=== PATIENT | male | born 1925 | race Caucasian/White ===

== ENCOUNTER 2017-07-12 20:02 | Emergency (ER) | payer MEDICARE, OTHER ==
[~2017-07-12 20:02] MED LIST: AMLODIPINE BESYL5 MG PO; BENICAR20 MG PO; CENTRUM SILVER1 EAC3 PO; ESTER-C 500 MG1 EACH PO; FISH OIL 1,0001 EAC3 PO; FUROSEMIDE40 MG PO; LANTUS100 UNITS/ SUB-Q; LEVOFLOXACIN250 MG PO; LIDOCAINE30 G TOP; OCUVITE TABLET1 EAC1 PO; POTASSIUM CHLO10 ME2 PO; WARFARIN SODIUM4 MG PO; WARFARIN SODIUM5 MG PO
== END 2017-07-12 20:10 | disposition left against medical advice (07) ==
LOC: ED 20:02
DX: Z53.21 Procedure and treatment not carried out due to patient leaving prior to being seen by health care provider (principal)

== ENCOUNTER 2017-08-20 14:18 | Emergency (ER) | payer MEDICARE, OTHER ==
[~2017-08-20] VITALS: Ht 177.8 cm; Wt 104.3 kg
[2017-08-20] MEDS ORDERED: NORCO 5-325 TA1 EACH PO (16:04)
== END 2017-08-20 16:35 | disposition home or self-care (01) ==
LOC: ED 14:18
DX: S00.03XA Contusion of scalp, initial encounter (principal); R07.81 Pleurodynia; I10 Essential (primary) hypertension; E11.9 Type 2 diabetes mellitus without complications; Z85.46 Personal history of malignant neoplasm of prostate; Z79.4 Long term (current) use of insulin; Z79.01 Long term (current) use of anticoagulants; W01.198A Fall on same level from slipping, tripping and stumbling with subsequent striking against other object, initial encounter
CPT/HCPCS: 70450; 71111; 99284

== ENCOUNTER 2017-08-25 10:12 | Inpatient (IN) | payer MEDICARE, OTHER ==
[~2017-08-25] VITALS: Ht 177.8 cm; Wt 104.5 kg
[~2017-08-25 10:12] MED LIST changes: +NORCO 5-325 TA1 EACH PO
[2017-08-25] MEDS ORDERED: DEMADEX20 MG PO (12:20)
--- NOTE | 2017-08-25 14:00 | NUR ---
PT TRANSFERED FROM ED. PT AWAKE AND ORIENTED. PT RESPONDING APPROPRIATLY TO QUESTIONS. SKIN ASSESSMENT DONE. ALEVYN APPLIED TO BACK AND COCCYX. ARM BANDAGES CHANGED IN ED. PT POSITIONED ON RIGHT SIDE. BLOOD SUGAR TAKEN = 58. ORANGE JUICE CHEESE AND CRAKERS PROVIDED. PT TOLERATES PO INTAKE WELL. ASSESSMENT DONE. MEDICAITONS GIVEN ORDERED (SEE MAR). PT URINATES WITH HELP IN URINAL. FAMILY AT BEDSIDE BREIFLY AND THEN LEFT FOR HOME. PT DEMONSTARTES USE OF CALL LIGHT. BED ALARM ON. BED RAILS UP.
--- NOTE | 2017-08-25 14:30 | NUR ---
PT WAS JUST ADMITTED, STAFF GETTING PT SETTLED IN [place]- AND DAUGHTER WAITING IN [place]. INTRO MYSELF, THEY BEGAN TO SHARE SOME TIMES WITH PREVIOUS CHAPLAINS, AND THEN BEGAN TO SHARE SOME ANXIETY ABOUT PT AND HIS CONDITION. WAS HOPING PT WOULD GO TO [facility] FOR SOME REHAB, AND THEN MAYBE THEY BOTH COULD LIVE AT ASSISTED LIVING TOGETHER. DISCUSSED THIS, AND THEY SEEMED AT EASE. PT READY FOR THEM, WILL CONTINUE TO FOLLOW.
--- NOTE | 2017-08-25 14:44 | NUR ---
BLOOD SUGAR RETAKEN. NOW 54, RETAKEN IN RIGHT HAND = 52. ADDITIONAL JUICE PROVIDED. PT STATES "I'M SO FULL." PLAN TO RETAKE SURGAR IN ANOTHER 15 MINUTES. PT ASYMTOMATIC. PT DENIES LIGHTHEADDENESS AND DIZZINESS. THIS RN AT BEDSIDE.
[2017-08-25] MEDS ORDERED: COUMADIN1 MG PO (15:04)
[2017-08-25] MEDS ORDERED: ESTER-C 500 MG1 EACH PO (15:05)
--- NOTE | 2017-08-25 15:14 | NUR ---
PT ASSISTED WITH BED HADLEY. NO BM PRESENT. PT REPORTS "FEELING BLOATED AND MISERABLE." CBG RETAKEN = 80. PLAN TO RETAKE AGAIN IN 15 MINUTES. SON AT BEDSIDE. BED RAILS UP. CALL LIGHT WITHIN REACH.
--- NOTE | 2017-08-25 16:06 | NUR ---
AFTERNOON ASSESSMENT DUE. PT ON RIGHT SIDE WATCHING TV. PT STATES NO REQUESTS OR COMPALINTS AND SAYS "THIS IS THE BEST HOSPITAL STAFF." ASSESSMENT DONE. MEDICATION GIVEN (SEE MAR). PT TURNED TO LEFT SIDE. CHAP STICK APPLIED. PT LEGS ARE ACTIVELY WEEPING AT THIS TIME. BED RAILS UP. CALL LIGHT WITHIN REACH.
--- NOTE | 2017-08-25 16:58 | NUR ---
PATIENT BLOOD GLUCOSE CHECKED FOR 87. PATIENT SITTING UP IN BED TO EAT DINNER OF SALMON AND MASHED POTATOES.
--- NOTE | 2017-08-25 18:13 | NUR ---
PT HERE FOR LIVER MASS AND WEAKNESS. FULL ASSIST. REGULAR DIET. SL IN LAC. BLOOD GLUCOSE LOW TODAY (52) HYPOGLYCEMIA PROTOCOL IN PLACE. ENCOAURGE INTAKE. MULTIPLE SKIN ISSUES. BANDAGES ON BUTTOX, UPPER BACK, LEFT UPPER ARM AND RIGHT FORARM. NYSTATIN AT BEDSIDE FOR PERINEAL AREA. RECENT FALLS AT HOME. GENERALIZED WEEKNESS. 4+ PITTING EDEMA IN LEGS, 3+ IN ABDOMEN, AND 2+ IN CHEST. LEGS WEEPING, MONITOR SKIN CLOSELY. ORIENTED TODAY. USES CALL LIGHT APPROPRIATLY.
--- NOTE | 2017-08-25 18:51 | EKG ---
[facility] [address] [place] [address] Signed Atrial fibrillation Low voltage QRS Cannot rule out Anteroseptal infarct (cited on or before 26-FEB-2016) Abnormal ECG When compared with ECG of 26-FEB-2016 13:33, Questionable change in initial forces of Anterior leads Confirmed by KJ SHINE MD ([id number]) on 08/25/2017 6:50:59 PM Electronically Signed By: KJ SHINE MD 08/25/17 1851 PATIENT NAME: VISHNU KAUFMAN Electrocardiogram DATE OF : [birth year] PHYSICIAN: KJ SHINE MD REPORT #: [id number] REPORT IS CONFIDENTIAL AND NOT TO BE RELEASED WITHOUT AUTHORIZATION
--- NOTE | 2017-08-25 19:36 | NUR ---
RECIEVED REPORT FROM DAY SHIFT NURSE. PATIENT RESTING IN BED. DENIES NEEDS AT THIS TIME. CALL LIGHT IN REACH.
--- NOTE | 2017-08-25 20:33 | NUR ---
REPOSITIONED PATIENT IN BED ON L SIDE. CHECKED FOR EPISODE OF INCONT., FOUND DRY. ASSISTED PATIENT WITH URINAL BUT HE WAS UNABLE TO VOID AT THIS TIME. PERIAREA IS REDDENED-APPLIED NYSTATIN POWDER. PLACED PILLOW CASES IN FOLDS TO KEEP AREA DRY. LUNGS ARE DIMINISHED. +3-+4 PITTING BLE EDEMA, AREAS ARE WEEPING WITH BLISTERS FORMING. CHUCKS UNDER LEGS. HEEL PROTECTORS IN PLACE. SPOTS OF REDNESS TO SHINS. FAINT PEDAL PULSES PALPATED. PATIENT DENIES PAIN. HYDRATION OFFERED. PATIENT DENIES NEEDS. CALL LIGHT IN REACH.
--- NOTE | 2017-08-25 21:12 | NUR ---
ASSISTED PT WITH URINAL. VOIDED WELL. PT HAS NO FURTHER NEEDS AT THIS TIME. CALL LIGHT IN REACH. PT ALERT AND ORIENTED, PLEASENT. PT STATES "THIS HOSPITAL HAS THE BEST NURSES, YOU ARE ALL SO GOOD." PT REPORTS GREAT CARE SINCE HE'S BEEN IN THE HOSPITAL.
--- NOTE | 2017-08-25 23:12 | NUR ---
repositioned patient on l side. hydration offered. checked for episode of incont., found dry. patient denies needs. call light in reach.
--- NOTE | 2017-08-26 01:45 | NUR ---
repositioned patient on r side. changed brief. cleaned periarea. patient used urinal to void. lungs are diminished. edema has not gone down since last night. patient denies pain. hydration offered. call light in reach.
--- NOTE | 2017-08-26 02:00 | NUR ---
CHANGED DRESSING TO UPPER ARMS. ADAPTIC TO MANJINDER-2 LARGE SKIN TEARS NOTED. PLACED ABD PAD AND WRAPPED WITH KERLIX. THERE WAS RED/BROWN DRAINAGE ON OLD KERLIX. REMOVED BANDAID TO L ELBOW. PLACED TELFA AND WRAPPED WITH KERLIX. FOAM DRESSINGS INTACT ON BUTTOCKS. FOAM DRESSING TO BACK INTACT.
--- NOTE | 2017-08-26 03:49 | NUR ---
PATIENT SLEEPING. CALL LIGHT IN REACH.
--- NOTE | 2017-08-26 04:30 | NUR ---
repositioned patient on l side. assisted patient with urinal. hydration offered. patient denies further needs.
--- NOTE | 2017-08-26 06:39 | NUR ---
REPOSITIONED PATIENT ON L SIDE. CHECKED FOR EPISODE OF INCONT., FOUND DRY. DENIES NEEDS AT THIS TIME.
--- NOTE | 2017-08-26 09:00 | NUR ---
MORNING ASSESSMENT AND MEDICATIONS DUE. PT IN BED. AWAKE AND ORIENTED. PT DENIES PAIN AND NAUSEA. ASSESSMENT DONE. MEDICATIONS GIVEN ORDERED (SEE MAR). PT EATS BREAKFAST IN FRONT OF THIS RN. PERITONEAL AREA ASSESSED AND CARE PROVIDED. PT REPOSITIONED, NOW ON LEFT SIDE. HOB ELEVATED. BED RAILS UP. CALL LIGHT WITHIN REACH. STUDENT RN PLANNING FOR ADL CARE TODAY.
--- NOTE | 2017-08-26 10:42 | NUR ---
PUMP ALARMING, "DISTAL OCCLUSION." PIV ASSESSED, WNL BUT NEEDS TO BE DC'D PER PROTOCOL: FIELD START. PIV STARTED IN RIGHT FA PER PROTOCOL. INFUSION NOW RUNNING THROUGH RFA (SEE MAR). ADL CARE DONE BY STUDENT RN. PT TURNED NOW ON RIGHT SIDE. PT WATCHING TV AND NAPPING ON AND OFF. PT STATES NO REQUESTS OR COMPLAINTS AT THIS TIME. BED RAILS UP. CALL LIGHT, PHONE, AND BELONGINGS WITHIN REACH.
--- NOTE | 2017-08-26 11:07 | NUR ---
PT CALLED TO REPORT FINISHED ON BEDPAN. PT HAD SMALL AMOUNT OF BM. INCONTINENT OF URINE, DEPENDS CHANGED, BARRIER CREAM WIPES USED, DRESSINGS ON BUTTOCKS INTACT. PT TOLERATED WEL. PT REPOSITIONED TO LEFT SIDE.
--- NOTE | 2017-08-26 11:57 | NUR ---
THIS RN TO BEDSIDE FOR FOCUSED ASSESSMENT AND NOON CBG. CBG TAKEN BY STUDENT, 174, INSULIN GIVEN ORDERED. FOCUSED ASSESSMENT DONE. PT SITTING UP FOR LUNCH. IV INFUSION COMPLETE. PIV FLUSHED AND SALINE LOCKED. ALCOHOL CAP APPLIED. PT STATES NO ADDITIONAL REQUESTS OR COMPLAINTS AT THIS TIME. BED RAILS UP. CALL LIGHT WITHIN REACH.
--- NOTE | 2017-08-26 12:39 | NUR ---
THIS CHEMICAL RESEARCH WORKER AND STUDENT NURSE ASSISTED PATIENT OFF BED HADLEY AND PERICARE. PATIENT TURNED ONTO LEFTSIDE. LEGS ELEVATED. PATIENT SITTING STRAIGHT UP IN BED TO FINISH LUNCH. CALL BUTTON IN REACH. NO OTHER NEEDS AT THIS TIME. STUDENT NURSE STATES THAT PATIENT REFUSED FULL BED BATH THIS AM. STUDENT NURSE ASSISTED WITH ORAL CARE, SHAVE, AND SHAMPOO CAP.
--- NOTE | 2017-08-26 13:05 | NUR ---
INTO ASSESS PT AND DISCUSS CARE PLAN AT THIS TIME. PT HAS APPOINTMENT IN [facility]ER CLINIC TOMORROW WITH , WANTS PT TO BE TAKEN TO THIS APPOINTMENT.
--- NOTE | 2017-08-26 13:07 | NUR ---
PT TURNED TO RIGHT SIDE AT THIS TIME.
--- NOTE | 2017-08-26 13:44 | NUR ---
CASE CARLI REQUESTING TO TALK WITH WHEN SHE COMES IN. CALLED AND STATES SHE WILL BE IN "ARROUND SUPPER TIME." BLEACH BOILER PACKER INFORMED.
--- NOTE | 2017-08-26 13:54 | NUR ---
PT CALL LIGHT ON. PT REQUESTS TO USE URINAL. PT ASSISTED. UNABLE TO URINATE AT THIS TIME. PT STATES "i HAVE CANCER." PT ENCOUARGED TO EXPRESS FEELINGS AND TALKS WITH THIS RN. DEPENDS BACK IN PLACE. DRY AT THIS TIME. BEDRAILS UP. CALL LIGHT WITHIN REACH.
--- NOTE | 2017-08-26 14:02 | NUR ---
I/OS REVIEWED. 150ML OUT TODAY. INFORMED. REQUESTS CATHETER PLACEMENT. ORDER NOTED BY THIS RN.
--- NOTE | 2017-08-26 14:25 | NUR ---
PATIENT RESTING IN BED WATCHING TV. FRESH ICE WATER. NO OTHER NEEDS AT THIS TIME.
--- NOTE | 2017-08-26 16:49 | NUR ---
THIS TRANSCRIPTION AND RAGHAV DEVI ASSISTED PATIENT ONTO THE BEDPAN. THEN OFF OF THE BEDPAN. THERE WAS NO BM. PATIENTS IN ROOM. RN IN ROOM DOING CBG. CALL LIGHT WITHIN REACH. NO OTHER NEEDS AT THIS TIME.
--- NOTE | 2017-08-26 16:52 | NUR ---
AFTERNOON ASSESSMENT DONE. AT BEDSIDE. MONKEY KEEPER CALLED TO BEDSIDE. PT STATES HE IS FEELING BETTER WITH THE CALDERA CATHETER IN. ASSESSMENT DONE. CBG TAKEN = 157. MEDICAITON GIVEN (SEE MAR). PT VISITING WITH . NO REQUESTS OR COMPLAINTS AT THIS TIME. PT VERBALIZES UNDERSTANDING OF PLAN OF CARE. PT EXHIBITS POSSIBLE DEPRESSION WHEN COMMENTS ON FIXING UP THE HOUSE AND PT STATES "I PROBABLY WILL NEVER GET THERE." BED RAILS UP. CALL LIGHT WITHIN REACH.
--- NOTE | 2017-08-26 17:48 | NUR ---
PT HERE FOR LIVER MASS AND WEAKNESS. FULL ASSIST, Q 2HOUR TURNS. 2 GRAM SODIUM DIET. CBG'S WITHIN RANGE TODAY. 1 UNIT INSULIN GIVEN AT MEALS. PLAN FOR PT TO GO TO DR. CHAPPELL'S OFFICE TOMORROW FOR 10AM APPOINTMENT IF HE CAN BE TRANSFERED TO A WHEELCHAIR. LOW URINE OUTPUT TODAY. CALDERA CATHETER PLACED PER MD ORDER. NEW SKIN TEAR ON RIGHT WRIST. TEFLA AND COBAN APPLIED. NEW PIV IN RIGHT FORVERNA NORMAN.
--- NOTE | 2017-08-26 18:14 | NUR ---
PT CALL LIGHT ON. PT REQUESTS TO PAY FOR 'S MEAL. DIETARY CALLED AND STATES THEY WILL SEND SOMEONE UP. PT FINISHED WITH DINNER. VITALS TAKEN. I/O'S RECORDED. PT SITTING UP IN BED VISITING WITH . BED RAILS UP. CALL LIGHT WITHIN REACH.
--- NOTE | 2017-08-26 18:20 | NUR ---
PT TURNED WITH 3 RN ASSIST. PT NOW ON RIGHT SIDE. BED RAILS UP. CALL LIGHT WITHIN REACH. PT TOELRATED WELL. FEET ELEVATED.
--- NOTE | 2017-08-26 20:38 | NUR ---
PT HAD BM ON BEDPAN, LARGE SOFT BM. CLEANED PT UP AND RE-POSITIONED HIM IN BED. REPLACED ALLEVYN DRESSING ON PT'S COCCYX AREA DUE TO THEM BEING SOILED. COCCYX IS RED, BUT BLANCHABLE, ONE SPOT WITH BROKEN SKIN. PT TOLERATED WELL. CALDERA DRAINING FREELY. PT ALERT AND ORIENTED X4. PT PLEASENT, VERBALIZES HIS APPRECIATION FOR HIS CARE HERE, STATES "YOU GIRLS ARE ALL SO GOOD, HARJEET JUST FELL IN LOVE WITH ALL OF YOU." PT DENIES FURTHER NEEDS. CALL LIGHT IN REACH.
--- NOTE | 2017-08-26 23:07 | NUR ---
PT TEMP 102.[address] SHINE, OKAY TO ORDER AND GIVE TYLENOL PO. PT COMPLAINS OF FEELING COLD AND HAS RIGORS. WILL CONTINUE TO MONITOR.
--- NOTE | 2017-08-27 00:01 | NUR ---
PT AWAKE IN BED, REPORTS NOT BEING ABLE TO FALL ASLEEP, REFUSED EAR PLUGS AND EYE MASK, STATES "ILL BE OKAY, I JUST HAVE MY NIGHTS AND DAYS MIXED UP I GUESS." LIGHT AND TV OFF IN ROOM. RE-POSITIONED PT IN BED. NO FURTHER NEEDS.
--- NOTE | 2017-08-27 03:22 | NUR ---
PT APPEARS ASLEEP, RR WNL AND UNLABORED. LIGHTS AND TV OFF IN ROOM.
--- NOTE | 2017-08-27 05:03 | NUR ---
PT HAD UNEVENTFUL NIGHT. HAD TROUBLE FALLING ASLEEP EARLY IN SHIFT, BUT ONCE HE DID, HE SLEPT MAJORITY OF SHIFT. LARGE SOFT BM. CALDERA DRAINING FREELY. NEW DRESSING TO COCCYX. PT TURNED APPROX Q2H THROUGHOUT SHIFT. PT ALERT AND ORIENTED X4. PLEASENT AND COOPERATIVE.
--- NOTE | 2017-08-27 07:30 | NUR ---
RECEIVED BEDSIDE REPORT FROM MAHAMED. PATIENT RESTING IN BED AWAKE. DENIES PAIN AND NAUSEA. REPORTED FEELING FULL. PATIENT IS A&O. CALDERA IN PLACE. NO APPARENT DISTRESS. CALL LIGHT IN REACH.
--- NOTE | 2017-08-27 08:00 | NUR ---
BLOOD GLUCOSE CHECKED BEFORE BREAKFAST. GLUCOSE WAS 132. PT'S INSULIN NOT NEEDED R/T BLOOD GLUCOSE WITHIN LIMITS. PT GIVEN DENTURES TO ASSIST WITH EATING. CALL LIGHT WITHIN REACH. PT HAS NO FURTHER REQUESTS.
--- NOTE | 2017-08-27 09:00 | NUR ---
IN TO GIVE PT MORNING MEDS. OT IN ROOM PT'S BP 170/53, HR 69 BEFORE MEDS ADMINISTERED. OT GOT PATIENT UP AT BEDSIDE, PT ABLE TO TAKE A FEW SMALL SIDE STEPS. PT COMPLAINS OF SOB AND WEAKNESS WITH EXERTION. PT'S O2 SAT DOWN TO 85 WITH ACTIVITY. O2 SAT IMMEDIATELY UP TO 91-93 WHEN RETURNING TO BED. PT'S HAIR COMBED AND FACE WASHED PER STUDENT NURSE. DENTURES PLACED IN DENTURE CONTAINER. PT HAS NO FURTHER REQUESTS. CALL LIGHT IN REACH.
--- NOTE | 2017-08-27 09:30 | NUR ---
PT'S FAMILY IN ROOM. PT NOTIFIED HE WILL NOT BE ABLE TO SEE ONCOLOGIST UNTIL THIS UPCOMING FRIDAY DUE TO INPATIENT STATUS. PT'S ASKING ABOUT WHETHER HE WILL QUALIFY TO GO TO [place]. PT & FAMILY INFORMED THAT THIS WOULD DEPEND ON HOW HE DOES DURING HOSPITAL STAY. PT DID NOT HAVE ANY FURTHER REQUESTS AT THIS TIME. CALL LIGHT IN REACH.
--- NOTE | 2017-08-27 09:55 | NUR ---
PATIENT OFF THE FLOOR WITH OR NURSE FADUMO FOR EGD.
--- NOTE | 2017-08-27 11:04 | NUR ---
STUDENT NURSE STATES THAT HE GAVE PATIENT A BED BATH AND CALDERA CARE. PATIENT STATES THAT WHEN HIM AND THE RN SEE THE PATIENT TO APPLY NYSTATIN POWDER THAT HE WILL WASH HIS BACK WELL.
--- NOTE | 2017-08-27 11:22 | NUR ---
THIS SENIOR SUPPORT ANALYST ASSISTED PUTTING PATIENT ONTO THE BEDPAN WITH RAGHAV PEREZ. PATIENTS IN ROOM.
--- NOTE | 2017-08-27 11:35 | NUR ---
CARE CONFERENCE ATTENDEES: PATIENT AND HIS PAT STAFF: DR SHINE, MYSELF CASE MANAGEMENT, EDINSON WALDEN RN, LYNNE PRIMARY NURSE, [facility], NINA RIVERA. DR SHINE DISCUSSED WITH THE PT ABOUT THE 8 CENTIMETER MASS IN HIS LIVER, HAD PICTURES TO SHOW PT APPROX WHERE MASS WAS LOCATED AND HOW IT IS PRESSING ON THE SUPERIOR VENA CAVA AND THAT IS WHY THE SWELLING IN THE LEGS AND ABD, BECAUSE THE RETURN FLOW TO THE HEART IS HAMPERED BY THE MASS IN THE LIVER. PT STATED UNDERSTANDING AND DR SHINE WENT ON TO EXPLAIN ABOUT BIOPSY AND THE BENIFIT OF THIS AND THE PT COMMENTED THAT HE WOULD JUST LIKE TO HAVE COMFORT NOT CHEMOTHERAPY, BROUGHT UP QUALITY VS QUANTITY AND DR SHINE AGREED. SO PT AND AGREE THEY WOULD LIKE COMFORT MEASURES NOW. WE TALKED A LITTLE ABOUT THE PLACES AVAILABLE FOR THE PT TO LIVE IN DURING THE REST OF HIS LIFE. PT AND WOULD LIKE HIM TO GO TO [facility], BUT IF NOT [facility], THEY WOULD LIKE HIM TO STAY IN [place] FOR EASE OF HER TO BE WITH HIM. I TOLD THEM I WOULD CALL THESE PLACES AND SEE WHAT I COULD FIND OUT. AND LET THEM KNOW.
--- NOTE | 2017-08-27 11:55 | NUR ---
CALLED [facility] AND STAN STATED SHE IS NOT SURE IF THEY WILL TAKE HIM A COMFORT CARE BUT IF HE HAS A SKILLED NEED THEY WOULD TAKE HIM SHE IS PRETTY SURE. I ALSO CALLED AND LEFT A MESSAGE FOR ANTONY AT [facility] (PT AND FAMILY 2ND CHOICE) MESSAGE LEFT FOR HER TO CALL BACK. THEN I CALL [facility] IN [place] AND THEY SAID THEY WOULD TAKE HIM A COMFORT CARE. THEN I CALLED [facility] AND THEY SAID THEY WOULD BE OVER THIS AFTERNOON TO EVALUATE THE PT. I CALLED THE AND LEFT A MESSAGE FOR HER TO CALL. I SPOKE WITH THE PT ABOUT THEM COMING TO EVALUATE HIM. HE SAID THAT WAS FINE.
--- NOTE | 2017-08-27 12:51 | NUR ---
BLOOD GLUCOSE CHECKED BEFORE LUNCH, GLUCOSE WAS 140. PRESCRIBED INSULIN NOT INDICATED R/T GLUCOSE BELOW LIMIT. PT COMPLAINED OF ITCHING ON RIGHT ARM. AREA IS RED, SKIN IS DRY. TOPICAL LOTION AND BARRIER CREAM PLACED TO SOOTHE ITCHING. NO FURTHER REQUESTS AT THIS TIME. CALL LIGHT IN REACH.
--- NOTE | 2017-08-27 13:45 | NUR ---
LINEN CHANGE AND VISHNU CARE DONE ON PATIENT BY THIS COMMUNITY AFFAIRS MANAGER AND STUDENT NURSE. PATIENTS HANDS AND FACE WASHED AND LOTION APPLIED TO ARMS. AFTER LINENS CHANGED PATIENT FELT SHORT OF BREATH. STUDENT RN BROUGHT IN VITAL CART. PATIENT SATS WHERE 92%. THIS COMMUNITY AFFAIRS MANAGER WAITED TO REPOSITON PATIENT ONTO LEFT SIDE UNTIL PATIENT WAS FEELING MORE COMFORTABLE. PATIENTS LEGS ELEVATED BY PILLOW. PATIENT REFUSED ANY ORAL CARE AT THIS TIME. TALKED TO PATIENT ABOUT SHAVING LATER THIS AFTERNOON AFTER HE IS RESTED. CALL BUTTON IN REACH. NO OTHER NEEDS AT THIS TIME.
--- NOTE | 2017-08-27 13:46 | NUR ---
PATIENT RESTING IN BED. WAS REPOSITIONED BY STUDENT NURSE AND GLAZE CARRIER. PATIENT REPORT MILD SOB WITH MOVING. NO PAIN. CARE CONGFERENCE WAS DONE THIS AM.
--- NOTE | 2017-08-27 14:00 | NUR ---
PT COMPLAINED OF ITCHING ON HIS RECTUM SINCE HIS LAST MB. WITH ASSISTANCE FROM RAGHAV PT WAS WIPED CLEAN USING BARRIER WIPES. BARRIER CREAM PLACED ON RECTUM. BANDAGE NOTED ON PATIENTS RIGHT GLUTEUS. APPEARS DRY AND INTACT. SKIN ON/AROUND RECTUM APPEARS RED. PT DENIES PAIN WITH WIPING. BEDDING CHANGED AND 1400 VITALS COMPLETE. PILLOW CASE PLACED BETWEEN PATIENTS SCROTUM AND INNER LEGS TO REDUCE CONTACT. PT DENIES FURTHER REQUESTS. CALL LIGHT WITH PT.
--- NOTE | 2017-08-27 14:56 | NUR ---
SNF STAFF IN ROOM TALKING TO PATIENT
--- NOTE | 2017-08-27 15:05 | NUR ---
AUTUMN FROM [facility] WAS HERE AND SHE STATED THEY WOULD TAKE HIM ON HOSPICE. STILL AWAITING TO HERE FROM MIKAEL PHAM
--- NOTE | 2017-08-27 16:00 | NUR ---
PATIENT RESTING IN BED DENIES PAIN AT THIS TIME. UPDATE PATIENT ON PROCEDURE (PARACENTHESIS) THAT DR SHINE TALKED TO ABOUT. DR ARANA CONSULTING FOR PROCEDURE. FAMILY WAS ALSO NOTIFIED.
--- NOTE | 2017-08-27 17:50 | NUR ---
PATIENT RESTING IN BED TALKING ON PHONE TO HIS . PATIENT'S GRANDAUNABEEL KEATING HAD SOME CONCERNS DUE TO FAMILY NOT ALL ON SAME PAGE AND HER GRANDMOTHER HAS HARD TIME REMEMBERING. PATIENT SIGNED CONSENT TO RELEASE INFORMATION TO GRANDDAUGHTER. GRANDANDREW FEELS LIKE SHE HAS HAD HER QUESTIONS ANSWERED. JUST LEFT ROOM. FRESH ICE WATER GIVEN. PATIENT ATE SMALL CONTAINER OF APPLE SCUACE AND WOULD LIKE SOME CHOCOLATE PUDDING. NO OTHER NEEDS AT THIS TIME. CALL BUTTON IN REACH.
--- NOTE | 2017-08-27 18:39 | NUR ---
PATIENT HAD AN UNEVENTFUL DAY. CARE CONFERENCE DONE TODAY WITH PATIENT AND PATIENT'S FAMILY. PLAN FOR FOR PATIENT TO GO ON COMFORT CARE AND D/C TO [facility]. PATIENT IS S/L. ASCITES. EDEMA IN THE LOWER EXTREMITIES. SCAB AND REDNESS NO THE CLARY SHINS. REDNESS IN THE BUTTOCKS AREA WITH ALLEVYN. FOELY IN PLACE. LOW URINE OUTPUT MD AWARE. CONSULT WITH DR ARANA FOR PARACENTHESIS IN THE AM.
--- NOTE | 2017-08-27 19:30 | NUR ---
RECEIVED REPORT FROM RN. PATIENT RESTING COMFORTABLY IN BED. DENIES NEEDS AT THIS TIME. CALL LIGHT WITHIN REACH.
--- NOTE | 2017-08-27 21:22 | NUR ---
ROUNDED CHARGE. PATIENT IS RESTING IN BED. PATIENT DENIES ANY PAIN. NO NEEDS NOTED. CALL LIGHT IN REACH.
--- NOTE | 2017-08-27 21:55 | NUR ---
VITALS AND I&OS DONE AND CHARTED. BEDSIDE TABLE AND CALL LIGHT WITHIN REACH. PT NEEDS NOTHING MORE AT THIS TIME
--- NOTE | 2017-08-27 21:58 | NUR ---
INFORMED HIS RN JAMES OF LOW OUTPUT FROM HIS CALDERA.
--- NOTE | 2017-08-27 22:30 | NUR ---
PATIENT RESTING IN BED. DENIES NEEDS AT THIS TIME. ASSESSMENT DONE. TURNED PATIENT FOR COMFORT, VISHNU CARE DONE, NEW LINES GIVEN FOR STOOL INCONTINENCE. NEW DRESSING TO SORE ON RIGHT BUTTOCK APPLIED. CALL LIGHT WITHIN REACH.
--- NOTE | 2017-08-27 22:50 | NUR ---
UPDATED DR. SHINE REGARDING PATIENT'S LOW URINE OUTPUT. NO NEW ORDERS AT THIS TIME.
--- NOTE | 2017-08-28 01:22 | NUR ---
PATIENT REPOSITIONED FOR COMFORT. DENIES FURTHER NEEDS. CALL LIGHT WITHIN REACH.
--- NOTE | 2017-08-28 03:45 | NUR ---
PATIENT REPOSITIONED IN BED FOR COMFORT. DENIES NEEDS AT THIS TIME. CALL LIGHT WITHIN REACH.
--- NOTE | 2017-08-28 04:43 | NUR ---
PATIENT'S NIGHT WAS UNEVENTFUL. HE HAS BEEN RESTING COMFORTABLY IN BED THROUGHOUT SHIFT. VSS, NO COMPLAINTS OF PAIN. URINE OUTPUT HAS BEEN LOW, MD AWARE. PATIENT IS Q2H TURN DUE TO SORES ON BUTTOCKS AND REDDENED COCCXY. IV IS SALINE LOCKED. PATIENT USES BEDPAN FOR BM OR 2PA/FWW TO BEDSIDE COMODE. REMAINS ON 2L O2 VIA NC. NO ACUTE CHANGES.
--- NOTE | 2017-08-28 05:49 | NUR ---
UPDATED DR. SHINE REGARDING PATIENT'S LOW URINE OUTPUT. NO NEW ORDERS AT THIS TIME.
--- NOTE | 2017-08-28 06:17 | NUR ---
REPOSITIONED PATIENT FOR COMFORT. DENIES NEEDS AT THIS TIME. CALL LIGHT WITHIN REACH.
--- NOTE | 2017-08-28 07:37 | NUR ---
I WAS REQUESTED TO PARTICIPATE IN A CARE CONF FOR PT. DURING THIS TIME, DR SHINE EXPLAINED PT'S CONDITION IN VERY SIMPLE PLAIN TERMS. " WE SUSPECT YOU HAVE A TUMOR ON YOUR LIVER. THE ONLY WAS TO KNOW FOR SURE IS WITH NEEDLE BIOPOSY. THEN FOLLOWED UP BY CHEMO AND QUALITY OF LIFE WILL BE GREATLY DIMINISHED. IT WILL NOT CURE YOU, JUST GIVE YOU MORE TIME. THE QUESTION "QUALITY VS QUANTITY" WAS ADDRESSED. PT AND BOTH TOGETHER SAID THEY HAD DISCUSSED THIS, AND THEY HAVE CHOSEN QUALITY, NO BIOPSY OR CHEMO. SONS WERE NOT PRESENT FOR CONF. TRIED TO VISIT PT LATER, BUT LOTS OF COMPANY. WILL FOLLOW UP
--- NOTE | 2017-08-28 07:43 | NUR ---
BEDSIDE REPORT RECEIVED FROM JAMES. PATIENT RESTING IN BED, APPEARS TO BE SLEEPING AT TIME OF REPORT. NO APPARENT DISTRESS NOTED. PATIENT IS ON 1L OF 02. CALL LIGHT IN REACH.
--- NOTE | 2017-08-28 08:15 | NUR ---
2 PERSON ASSIST WITH LEANDER JOHANSEN-MOVE PT UP IN BED FOR BREAKFAST. RINSED DENTURES AND GAVE TO PT. CALL LIGHT IN REACH.
--- NOTE | 2017-08-28 08:30 | NUR ---
PT WAS REPOSITIONED HIGHER IN BED AND ALL PILLOWS WERE REMOVED, WILL BE DOING A PROCEDURE SHORTLY.
--- NOTE | 2017-08-28 09:05 | NUR ---
IN TO ROOM TO ASSESS PATIENT. RAGHAV CHACKO IN ROOM TO HELP REPOSITIONED PATIENT. MORNING ASSESSMENT DONE. LOWER LEGS EDEMA SHOWED SOME IMPROVEMENT. ASCITES, ABD DISTENDED AND TIGHT, TENDER WITH SLIGHT PALPATION. SCROTUM STILL RED BUT MUCH BETTER THAN YESTERDAY. DENIES PAIN AT THIS TIME, REPORTS MILD SOB WITH MOVEMENT. REDNESS NOTED ON CLARY LEGS. INCREASED APPETITE TODAY. IV SITE PATENT. MORNING MED ADMINISTERED. CALL LIGHT IN REACH.
--- NOTE | 2017-08-28 09:48 | NUR ---
PT IS RESTING IN BED SAFELY WITH CALL LIGHT IN REACH. PT DOES NOT NEED ANYTHING AT THE MOMENT
--- NOTE | 2017-08-28 10:30 | NUR ---
PT WAS REPOSITIONED ONTO HIS LEFT SIDE. PT DID NOT NEED ANYTHING ELSE AT THE MOMNET
--- NOTE | 2017-08-28 10:50 | NUR ---
PHYSICAL THERAPIST IN ROOM TO WORK WITH PATIENT. PATIENT WAS ABLE TO STAND AND WALKED 10FEET. PATIENT TOLERATED OK . O2 WAS INCREASED TO 2L VIA NC. SOB NOTED WITH ACTIVITY. RESTING IN BED AT THIS TIME. CALL LIGHT IN REACH.
--- NOTE | 2017-08-28 13:00 | NUR ---
PATIENT RESTING IN BED, REPORT SOB, 02 SAT 97 ON 2L. PATIENT WAS REPOSITIONED. DENIES ANY CHEST PAIN OR ANY DISCOMFORT.
--- NOTE | 2017-08-28 13:07 | NUR ---
PT WAS LAYING IN BED, WAVED ME IN. HE SHOOK MY HAND AND THANKED ME FOR STOPPING BY. PT STATED HE WAS NOT IN ANY PAIN, BUT GREAT DISCOMFORT FROM FLUID BUILDUP IN ABDO. HE STATED IT WAS TO BE DRAINED THIS AFTERNOON. I ASKED PT IF HE WAS STILL BELIEVING THAT COMFORT CARE VS TREATMENT WAS WHAT HE WANTED TO DO. HE SAID YES. PT WENT ON TO SAY THAT IF HE WAS YEARS YOUNGER HE MIGHT CON- HAND ZIPPER TRIMMER TREATMENT, BUT NOT NOW. CLEAR, ALERT AND ORIENTED IN HIS THOUGHT PROCESS AND AWARENESS. HE ASKED IF HE COULD BE BAPTIZED, HE THINKS HE WAS BUT COULDN'T REMEMBER. HE IS CLOSE WITH HIS NEIGHBOR WHO IS A [employer]. HE WOULD LIKE HIM IF POSSIBLE. [employer]RA[employer] IS OUT OF TOWN, I WILL CONTACT. PT'S GRANDD LIAM CALLED AND IS CONCERNED ABOUT THIS ISSUE. I ASSURED HER WE WILL TAKE CARE OF THIS ISSUE FOR HER GRANDFATHER. HE SAID HE IS READY TO GO, EXCEPT FOR THIS ONE ISSUE. I PRAYED WITH PT, WITH TEARS HE THANKED ME. WILL FOLLOW NEEDED
--- NOTE | 2017-08-28 14:29 | NUR ---
TELEPHONE CALL RECEIVED REGARDING WOUND CONSULT REGARDING RIGHT UPPER ARM WOUND. WOUND IS FOUND TO BE COVERED IN ABD AND SECURED WITH COBAN. ADAPTIC IS FIRST LAYER OF DRESSING AND IS FOUND TO BE STUCK TO THE WOUND. NORMAL SALINE USED TO MOISTEN THE ADAPTIC FOR REMOVAL. SOME BLEEDING IS NOTED WHEN ADAPTIC IS REMOVED. SMALL AREA OF DRIED, SCAB LOOKING SKIN NOTED TO BOTTOM PORTION OF LARGER WOUND. OTHERWISE WOUND BEDS APPEAR LIGHT PINK AND ARE MOIST. PROMOGRAN JUDY COLLAGEN APPLIED TO BOTH WOUNDS AND THEN COVERED WITH 3 X 3 AND 5 X 5 ALLEVYN DRESSINGS. PT TOLERATES THE DRESSING CHANGE WELL. CONFER W/DR SHINE REGARDING WOUNDS AND NEW ORDER IS RECEIVED.
--- NOTE | 2017-08-28 14:38 | NUR ---
Pt. resting in bed. Appears comfortable but has dyspnea. Pt. denied pain or needing anything. Call light within reach.
--- NOTE | 2017-08-28 14:56 | NUR ---
PATIENT RESTING IN BED AT THIS TIME, PATIENT APPEARS TO BE SLEEPING , RR EVEN/UNLABORED. STILL ON 2L VIA NC. NO APPARENT DISTRESS.
--- NOTE | 2017-08-28 15:06 | NUR ---
VISITED WITH [employer] FRIEND OF PT WHO GAVE ME PERMISSION TO TALK TO [employer] REGARDING HIS HEALTH. [facility] IS OUT OF TOWN, BUT WILL VISIT WITH PT FIRST THING SAT. MORNING. PT WAS ASLEEP, SHARED WTIH HIS RN ELENO-SHE WILL LET PT KNOW. WILL FOLLOW NEEDED
--- NOTE | 2017-08-28 15:15 | NUR ---
RECIEVED A CALL FROM [facility] AND THEY SOUNDED HOPEFUL THAT THEY MIGHT ACCEPT PT, BUT WILL COME UP BETWEEN 10 TO 0 TO EVALUATE HIM.
--- NOTE | 2017-08-28 15:30 | NUR ---
TALKED WITH [facility] ABOUT THE PT AGAIN, THEY STATED IF WE HAD A PLACE FOR HIM TO GO IF HE WERE UNABLE TO PARTICIPATE IN THERAPIES THEY WOULD BE WILLING TO TAKE HIM FOR SKILLED CARE. WE DISCUSSED THE CONCHA SHUNT THAT CANNOT BE PLACED AT THIS TIME DUE TO PT INR BEING TO HIGH PER DR ARANA. DR ARANA DID THINK OF ANOTHER POSSIBLE DRAIN THAT HE COULD USE AND IS SEEING IF HE CAN GET IT ORDERED TO PUT IN PT STATES IT MAY TAKE 1 OR 2 DAYS TO GET IT. THEN HE CAN HOPEFULLY GET IT PLACED.
--- NOTE | 2017-08-28 16:20 | NUR ---
MESSAGE LEFT FOR PT WITH POSS PLANS FOR HIM, CALLED NO ANSWER SO LEFT MESSAGE.
--- NOTE | 2017-08-28 16:27 | NUR ---
FAXED MOST RECENT CHART NOTE FROM PT AND OT TO [facility]
--- NOTE | 2017-08-28 17:00 | NUR ---
DR ARANA IN ROOM DOING THE PARACENTHESIS. ASSISTED MD WITH PROCEDURE. STERILE PROCEDURE WAS FOLLOWED. PATIENT TOLERATED PROCEDURE VERY WELL. PATIENT WAS ON 2L OF O2 FOR THE PROCEDURE. PATIENT WAS TALKATIVE AND VS WNL. NO DISTRESS NOTED. MD DRAINED 5L OF FLUID FROM THE ABD. PATIENT RESTING IN BED IN BED AT THIS TIME. EVENING MED ADMINISTERED. WARFARIN WAS HELD PER MD REQUEST. PATIENT SITTING UP IN BED AT THIS TIME EATING DINNER WITH FAMILY. CALL LIGHT IN REACH. FAMILY AT BEDSIDE.
--- NOTE | 2017-08-28 17:45 | NUR ---
DR ARANA DID A PARACENTHESIS, PT IN [place] WITH HER BROTHER IN [place] AND A SON. EXPLAINED WHAT TRANSPIRED THIS AFTERNOON AND THE POSSIBILITY THAT DR ARANA MIGHT PUT IN THE PLEURAL DRAIN BUT IN ABD FOR DRAINAGE OF ASCITES AND THEN PT CAN GO TO [facility] WITH ORDERS FOR PT AND OT (WHICH HE ACTIVILY PARTICIPATED IN TODAY) AND THE DRAIN--POSS GET STRONGER AND GO TO AN ASSISTED LIVING FACILITY FROM THERE. SHE WAS QUITE PLEASED WITH THIS.
--- NOTE | 2017-08-28 18:23 | NUR ---
Pt resting in bed with family at bedside. Pt reports no discomfort or pain. IV infusion of Vit K currently infusing. IV site is patent. Pt. was releaved after 5 liters of fluid was expressed by paracentesis. Pt. was excited to eat but reported reduced appetite but described the food as "excellent". Family was educated about procedure with Dr. Nguyen. Pt. reports it is easier to breath now.
--- NOTE | 2017-08-28 18:32 | NUR ---
APPROX 0 GOT A PHONE CALL FROM NURSING STAFF STATING THAT MR MANDEEP CRUZ HAS SOME QUESTIONS AND THEY WANTED TO TALK ABOUT TAKING HIM HOME AND CARING FOR HIM THERE. LORA CARY I BELIEVE IS WHO I WAS TALKING WITH. I DISCUSSED WITH HER AND ONE OF HER FRIENDS IN [place] THE OPTIONS OF TAKING HIM HOME, WE TALKED ABOUT HOSPICE AND SOME OF THE THINGS THEY WOULD BE ABLE TO DO, BUT EXPLAINED THE BIGGEST THING IS THAT THEY WOULD NEED TO PROVIDE 24 HOUR CARE FOR HIM WHETHER IT IS FAMILY OR PAID HELP AND THAT THOSE PERSONS MAY HAVE TO CHANGE DIAPERS, CLEAN UP BOWEL MOVEMENTS OR EMPTY CATHETERS AND OTHER THINGS, EXPLAINED THAT HOSPICE IS NOT THERE BUT A COUPLE TIMES A WEEK TO SEE HOW THINGS ARE GOING, THERE FOR PHONE QUESTIONS, AND IF THEY THINK THEY NEED TO COME IN RESPONSE TO A CALL THEY WILL. THE FAMILY SEEMED TO THINK THIS MIGHT BE A BETTER OPTION. I ALSO EXPLAINED THAT IT MAY TAKE A LITTLE TO GET EVERYTHING LINED UP FOR THIS AND THEY ARE STILL WELCOME TO FOLLOW OTHER PLANS AT ANYTIME DURING HIS STAY SOMEWHERE.
--- NOTE | 2017-08-28 19:01 | NUR ---
PATIENT HAD DONE WELL. PARACENTHESIS DONE THIS AFTERNOON, 5L OF FLUID DRAINED. REPOSITIONED Q 2HRS. ALLEVYN TO BUTTOM, AND BACK. REDNESS AND ESCORIATION IN THE LOWER EXTREMITIES. SKIN TEAR IN THE RIGHT UPPER ARM, COVERED WITH ALLEVYN. DRESSING WAS CHANGED BY WOUND CARE NURSE ELY. PATIENT WALKED 10FEET WITHPHYSICAL THERAPIST TODAY AND THIS AFTERNOON. TOLERATED WELL. WARFARIN WAS HELD VT MD ORDER. VITK ADMINISTERED THIS PM AFTER PARACENTHESIS.
--- NOTE | 2017-08-28 19:15 | NUR ---
SHIFT REPORT RECEIVED. PATIENT APPEARS TO BE SLEEPING. CALL LIGHT IN REACH.
--- NOTE | 2017-08-28 20:05 | NUR ---
CHARGE NURSE ROUNDING NOTE: PATRICIA, COOPERATIVE, AWAKIE WATCHING TV. NO REQUESTS CALL LIGHT AND REMOTE CONTROL AT BEDSIDE
--- NOTE | 2017-08-28 21:34 | NUR ---
VITALS AND I&OS DONE AND CHARTED. BLOOD SUGAR DONE WELL. BEDSIDE TABLE AND CALL LIGHT WITHIN REACH.
--- NOTE | 2017-08-28 21:35 | NUR ---
EVENING MEDS GIVEN PER ORDER. PATIENT IS AAOX3. DENIES PAIN. PATIENT ABLE TO SWALLOW PILLS BUT COUGHED FOR SEVERAL MINS AFTER. HOB ELEVATED TO 90 DEGREES. WILL RECOMMEND PATIENT TAKE HIS PILLS WITH APPLE SAUCE FROM NOW ON. PATIENTS LUNG ARE CLEAR BUT HE FEELS SLIGHTLY SOB WHEN LAYING FLAT. ABD IS SEVERELY DISTENDED, FIRM, BUT NOT TENDER. BOWEL SOUNDS ACTIVE. CALDERA IS DRAINING DARK ARMBER URINE, OUTPUT QS. LOWER EXTREMITIES HAVE 2+ PITTING EDEMA BILATERALLY. MULTIPLE SCABS PRESENT ON LEGS. DRESSING ON PATIENTS LEFT SHOULDER IS C/D/I AND SO IS THE ALYVEN DRESSING ON HIS COCCYX. PATIENT REPOSITIONED TO REDUCE PRESSURE ON THESE AREAS. HEEL PROTECTORS IN PLACE. PATIENT DENIES ANY NEEDS.
--- NOTE | 2017-08-29 | NUR ---
REPOSITIONED PATIENT TO LEFT SIDE. HOB ELEVATED FOR COMFORT. PATIENT REPORTS THAT HE IS COMFORTABLE LIKE THIS. CALL LIGHT IN REACH. PATIENT REQUEST LIGHTS BE TURNED OFF AT THIS TIME.
--- NOTE | 2017-08-29 00:57 | NUR ---
PATIENT APPEARS TO BE SLEEPING SOUNDLY. RR 16.
--- NOTE | 2017-08-29 03:30 | NUR ---
PATIENT REPOSITIONED TO LEFT SIDE. HE DENIES ANY PAIN. PHYSICAL ASSESSMENT REMAINS UNCHANGED. NO LEAKAGE FROM THE PARACENTESIS SITE. 2L NC. OUTPUT IS BELOW CALL PARAMETERS, CALDERA EMPTIED AT 2200 LAST NIGHT FOR 150ML. EMPTIED THIS MORNING AT 0345 FOR 100MLS. DARK SRINIVAS COLORED.
--- NOTE | 2017-08-29 04:50 | NUR ---
NOTIFIED OF PATIENT'S LOW URINE OUTPUT. NO NEW ORDERS. ENCOURAGE PO FLUIDS.
--- NOTE | 2017-08-29 05:42 | NUR ---
PATIENT HAS SLEPT WELL THROUGHOUT THE SHIFT. HE IS ORIENTED X4. 2L NC. LUNGS CLEAR. ABD SEVERELY DISTENDED. BOWEL SOUNDS ACTIVE. NO PAIN. NO LEAKING FROM PARACENTISIS SITE. TURN Q2HR. 2+ EDEMA ON CLARY LOWER EXTREMITIES. CALDERA, LOW URINE OUTPUT. MD AWARE. ENCOURAGE PO FLUIDS. ALYVENS ON BACK AND COCCXY ARE INTACT. SKIN TEAR ON R ARM COVERED. HEEL PROTECTORS. 2PA W/FWW. PILLS WITH APPLE SAUCE AND HOB AT 90 DEGREES.
--- NOTE | 2017-08-29 06:15 | NUR ---
PATIENT REPOSITIONED. CALDERA EMPTIED FOR 75MLS SINCE 329. DISCUSSED LOW URINE OUTPUT WITH PATIENT AND ENCOURAGED FLUIDS. PLACED WATER WITHIN REACH AND ELEVATED PATIENT'S HEAD. PATIENT DENIES PAIN. NO NEEDS AT THIS TIME.
--- NOTE | 2017-08-29 06:18 | NUR ---
VITALS AND I&OS DONE AND CHARTED. REPOSITIONED HIM WITH HIS RN JUAN JOSE. BEDSIDE TABLE AND CALL LIGHT WITHIN REACH. PT NEEDED NOTHING ELSE AT THAT TIME WHEN I ASKED HIM.
--- NOTE | 2017-08-29 07:47 | NUR ---
Report taken from maintenance mechanic 2nd shift RN. Pt has diminished urine output and is encouraged to increase fluid intake today. Pt. states he is comfortable. GUN STOCK CHECKER performing bedbath. Pt eating breakfast. CBG was 111. Noted diminshed breath sounds in the LLL and RUL. Expriatory wheezes noted in the NESSA and crackles in the base of RLL. Will continue to monitor urine and respirations. Abdomin still distended but considerably less than yesterday. Pt. reports no pain at incision area or tenderness. Call ight within reach.
--- NOTE | 2017-08-29 08:11 | NUR ---
BEDSIDE REPORT RECEIVED FROM JUAN JOSE. PATIENT AWAKE IN BED. DENIES PAIN AT THIS TIME. CALL LIGHT IN REACH.
--- NOTE | 2017-08-29 08:25 | NUR ---
Pt. given bed bath, nando area assessed for breakdown. No additional areas noted. Pt. shaved. Family to arrive soon. Instructed patient we would like to get him in the chair when family arrives. Call light within reach.
--- NOTE | 2017-08-29 08:50 | NUR ---
PATIENT ASSESSMENT DONE, AND MORNING MEDS ADMINISTERED BY ALEX GUARDADO, WITNESS BY THIS RN. PATIENT DENIES PAIN. PATIENT APPREARS CONFORTABLE THIS AM. REPORTED THAT HE FEELS BETTER AND CAN BREATH BETTER.
--- NOTE | 2017-08-29 10:39 | NUR ---
PT RESTING IN BED, WAITING FOR P.T. TO RETURN. FEELING MUCH BETTER WITH FLUID DRAINED OFF ABDO. PT ALERT AND ORIENTED AND FEELS COMFORTABLE ENOUGH TO TALK ABOUT HIS LAST DAYS AND HIS OWN . GOOD VISIT, EXTENDED A BLESSING, WILL FOLLOW NEEDED
--- NOTE | 2017-08-29 11:15 | NUR ---
SPOKE WITH PATIENT IN ROOM. PATIENT STILL PLANS ON HAVING DRAIN PLACED BY DR ARANA. HE STATES HE WILL GO TO "PRISON" FOR STRENGTHENING BEFORE EITHER GOING HOME OR TO STAY AT ASSISTED LIVING. HE STATES HE AND HIS HAVE TALKED IT ALL OVER. HE STATES HIS WILL BE AROUND LATER TODAY. HE HAS NO QUESTIONS EXCEPT IF WE KNOW WHEN DR ARANA PLANS ON THE PROCEDURE. WE DISCUSSED THAT DR ARANA IS WAITING FOR SOME SPECIFIC EQUIPMENT. HE STATES HE FEELS MUCH BETTER AFTER SOME OF THE FLUID WAS REMOVED. PATIENT VERY THANKFUL TO STAFF AND HAS NO FURTHER CONCERNS.
--- NOTE | 2017-08-29 11:19 | NUR ---
PATIENT WALKED WITH PHYSICAL THERAPIST, NOW SITTING IN THE CHAIR TALKING ON THE PHONE. PATIENT HAD A BED BATH THIS AM BY RAGHAV BOWSER AND STUDENT NURSE. DENIES PAIN AT THIS TIME. REPORTS THAT HE FEELS, AND CAN BREATH BETTER AFTER THE PROCEDURE YESTERDAY. CALL LIGHT IN REACH.
--- NOTE | 2017-08-29 11:34 | NUR ---
Bedding changed. Pt. given juice and coffee. Water encouraged to increase urine output. Pt. up sitting in chair with visitors. Pt. denies pain or discomfort. Pt. denies needing anything at this time. Call light within reach.
--- NOTE | 2017-08-29 15:17 | NUR ---
ASSISTED PATIENT FROM CHAIR TO BED WITH 2 PERS. PATIENT WAS CLEANED. PATIENT RESTING IN BED AT THIS TIME. REPORTS NO PAIN. AFTERNOON MEDS ADMINISTERED.
--- NOTE | 2017-08-29 15:17 | NUR ---
DR ARANA IN ROOM TO REEVALUATE PATIENT.
--- NOTE | 2017-08-29 15:41 | OR ---
[facility] [address] [place], [place] [address] Signed DATE OF OPERATION: 08/28/2017 SURGEON: Ericka Arana MD PREOPERATIVE DIAGNOSIS: Symptomatic massive ascites related to hepatic metastases. POSTOPERATIVE DIAGNOSIS: Symptomatic massive ascites related to hepatic metastases. PROCEDURE: Right-sided paracentesis (5 L). ANESTHESIA: 1% lidocaine. INDICATION: This 89-year-old white man has end-stage liver cancer and comfort care measures are being initiated. He has very symptomatic ascites with shortness of breath, pain, and so forth. He has undergone palliative paracentesis in the past by radiologic support. He is now to undergo the procedure. He understands the risks of bleeding, infection, and so forth. It is notable that his INR is 2.5 related to Coumadin use, but I believe that it is reasonably safe to perform paracentesis despite that finding. FINDINGS: Relatively clear yellowish ascites fluid was noted. There was no bloody fluid. 5 L were taken off without problem and with marked benefit to his dyspnea and so forth. DESCRIPTION OF PROCEDURE: In a semi-recumbent position in his bed, the right abdomen was prepared with chlorhexidine solution and draped sterilely. A 1% lidocaine was injected locally in the right pararectus space. Using a catheter kit, an incision was made. It was small and the safety lock needle passed into the peritoneal cavity, encountering ascites type fluid. It was withdrawn and the appropriate catheter passed over the device (pigtail type). Appropriate tubing was set to evacuate the bottles. Five sets of bottles were taken off without problem. Marked improvement in his abdominal girth and improvement in his dyspnea was noted. He tolerated the procedure well. There was no untoward bleeding. A Band-Aid was applied to the site. Electronically Signed By: ERICKA ARANA MD 08/29/17 1541 PATIENT NAME: VISHNU KAUFMAN OPERATIVE REPORT DATE OF : [birth year] REPORT #: [id number] PHYSICIAN: ERICKA ARANA MD PCP: JUAN MERAZ DO REPORT IS CONFIDENTIAL AND NOT TO BE RELEASED WITHOUT AUTHORIZATION [address] [address] Signed Ericka Arana MD JM/MODL /[id number] cc: Kj Shine MD Copies: KJ SHINE MD ~ Electronically Signed By: ERICKA ARANA MD 08/29/17 1541 PATIENT NAME: VISHNU KAUFMAN OPERATIVE REPORT DATE OF : [birth year] REPORT #: [id number] PHYSICIAN: ERICKA ARANA MD PCP: JUAN MERAZ DO REPORT IS CONFIDENTIAL AND NOT TO BE RELEASED WITHOUT AUTHORIZATION
--- NOTE | 2017-08-29 18:00 | NUR ---
PT REPORTED HIS BOTTOM WAS HURTING BADLY. 3 PERSON ASSIST WITH RAGHAV BOWSER AND LEANDER JOHANSEN- ROLLED PT TO RIGHT SIDE, CLEANED AREA AND APPLIED CREAM, NEW LUAN ON BED. POSTINIONED PT ONRIGHT SIDE WITH PILLOWS PROPPED BEHIND.
--- NOTE | 2017-08-29 18:32 | NUR ---
PATIENT HAD A FAIR DAY. HAD BEEN SITTING IN THE CHAIR MOST OF THE SHIFT. WALKED WITH PHYSICAL THERAPIST OUT THE HIS ROOM AND BACK TO THE CHAIR. HAD ONE BM. URINE OUTPUT STILL LOW. DR SHINE AWARE, ENCOURAGE PO FLUID. PATIENT HADS BEEN DRINKING MORE TODAY. LUNGS DIM IN THE BASES. ACTIVE BOWEL TONE. IV SITE S/L.
--- NOTE | 2017-08-29 19:58 | NUR ---
SHIFT REPORT RECEIEVED AT BEDSIDE. PATIENT IS IN GOOD SPIRITS. ENCOURAGED ORAL INTAKE. PATIENT DENIES NEEDS.
--- NOTE | 2017-08-29 20:10 | NUR ---
PATIENT REQUESTING TO GO TO SLEEP. REPOSITIONED HIM FOR COMFORT. PATIENT SOB WITH TURNING BUT RECOVERED QUICKLY. HE DENIES ANY NEEDS.
--- NOTE | 2017-08-29 20:15 | NUR ---
EVENING MEDS GIVEN WITH APPLE SAUCE. PATIENT TOLERATED WELL. LUNG SOUNDS HAVE EXP WHEEZES AND COARSE THROGUHOUT, WITH CRACKLES IN THE BASE THAT DO NOT CLEAR WITH COUGHING. ABD IS FIRM, NONTENDER, BOWEL SOUNDS ACTIVE. PATIENT HAS POOR APPETITE AND POOR ORAL INTAKE. URINE OUTPUT HAS BEEN LOW, MD AWARE. CALDERA IN PLACE, OUTPUT DARK SRINIVAS. 2+ EDEMA NOTED IN LOWER EXTREMITIES. HEELS FLOATED. MULTIPLE SCABS PRESENT ON PATIENT'S LEGS. WOUNDS ON PATIENTS BACK AND COCCYX ARE COVERED. PATIENT IS ON 1.5L NC.
--- NOTE | 2017-08-29 21:30 | NUR ---
PATIENT REQUESTING PRN SLEEPING AID. DISCUSSED PRN OPTIONS WITH PATIENT FOR SUBLINGUAL MORPHINE, HE DENEIS ANY PAIN. STATES HE WILL KEEP TRYING TO SLEEP.
--- NOTE | 2017-08-30 00:05 | NUR ---
PATIENT CONTINUES TO BE UNABLE TO SLEEP. PRN MORPHINE PROVIDED. THIS DOES NOT APPEAR TO HAVE AN EFFECT ON THE PATIENT'S RESTLESSNESS. WHEN ASKED WHAT IS KEEPING HIM AWAKE HE STATES "JUST THE THOUGHTS OF DYING". RN STAYED IN ROOM WITH PATIENT TO DISCUSS HIS CONCERNS AND PROVIDE COMFORT. PATIENT ALSO STATES HE USUALLY TAKES TYLENOL PM TO HELP HIM SLEEP.
--- NOTE | 2017-08-30 00:45 | NUR ---
MD CONTACTED TO REQUEST PRN SLEEP AID. ORDER FOR 25MG BENADRYL PO ONCE. VERIFIED USING READ BACK METHOD.
--- NOTE | 2017-08-30 01:09 | NUR ---
REPOSTIONED PATIENT. HE REPORTS FEELING COMFORTABLE. BENADRYL PROVIDED. CALL LIGHT IN REACH.
--- NOTE | 2017-08-30 02:12 | NUR ---
PATIENT APPEARS TO BE SLEEPING SOUNDLY. RR 16. CALL LIGHT IN REACH.
--- NOTE | 2017-08-30 05:32 | NUR ---
PATIENT SLEPT ON AND OFF THROUGHOUT THE NIGHT. HE HAD NO PAIN BUT SOME DIFFICULTY FALLING ASLEEP DUE TO DISTRESS OVER HIS NEW DIAGNOSIS. PATIENT WAS ABLE TO SLEEP AFTER RECEIVING 25MG OF BENADRYL. PATIENT WAS TURNED Q2HR. CALDERA IN PLACE, OUTPUT IS LOW AND SRINIVAS IN COLOR. ENCOURAGING PO INTAKE.
--- NOTE | 2017-08-30 07:43 | NUR ---
SHIFT REPORT RECEIVED AT BEDSIDE FROM JUAN JOSE. PATIENT RESTING IN BED AT THIS TIME. EYES CLOSED, RR EVEN AND UNLABORED. NO APPARENT DISTRESS NOTED. CALL LIGHT IN REACH
--- NOTE | 2017-08-30 09:25 | NUR ---
PATIENT FOUND SITTING IN THE CHAIR DENIED PAIN, REPORTED MILD SOB WITH MOVEMENT. SHIFT ASSESSMENT DONE. PATIENT ADB IS FIRM, AND DISTENDID DUE TO ASCITES. PITTING EDEMA AND REDNESS NOTED IN THE LOWER EXTREMITIES AND UPPER THIGH. LUNGS ARE CLEAR BUT DIM IN THE BASES. PATIENT STILL ON 1L OF O2. PATIENT REPORTED THAT HE DID NOT SLEEP WELL LAST NIGHT. PLAN TO SHOWER PATIENT THEN PUT HIM BACK TO BED TO REST. CALL LIGHT IN REACH
--- NOTE | 2017-08-30 10:30 | NUR ---
ASSISTED RN HAN IN MOVING PATIENT TO BATHROOM FOR SHOWER. PATIENT SITTING ON SHOWER CHAIR.
--- NOTE | 2017-08-30 10:50 | NUR ---
PATIENT WAS ASSISTED TO SHOWER CHAIR, THEN TO BATHROOM FOR SHOWER. PATIENT WAS ASSISTED BACK TO BED. WARM BLANKET PROVIDED. ALLOW PATIENT TO REST. MICHELLE OPEN WITH DOOR CLOSED. CALL LIGHT IN REACH.
--- NOTE | 2017-08-30 12:53 | NUR ---
DR SHINE IN ROOM TO EVALUATE PATIENT AND DISCUSS PLAN OF CARE.
--- NOTE | 2017-08-30 13:38 | NUR ---
PATIENT WAS REPOSITIONED, HEAD OF BED ELEVATED. PATIENT SITTING IN EBD AT THIS TIME EATING LUNCH. NO DISTRESS. PATIENT STILL ON 2L OF O2. CALL LIGHT IN REACH
--- NOTE | 2017-08-30 15:10 | NUR ---
AROUND 10:30 THIS MORNING THE NURSE AND I GAVE HIM A SHOWER. WASHED HIS HAIR. THAN WE PUT HIM BACK TO BED.
--- NOTE | 2017-08-30 15:13 | NUR ---
PATIENT RESTING IN BED AWAKE DENIES PAIN. FAMILY IN ROOM VISITING
--- NOTE | 2017-08-30 17:34 | NUR ---
PT RESTING IN BED. PT DENIES NEEDS AT THIS TIME. PT WITH POOR APPETITE, ATE 25% OF DINNER.
--- NOTE | 2017-08-30 18:17 | NUR ---
PT TURNED TO LEFT SIDE, SMALL SMEAR, PERICARE PROVIDED. PT DENIES OTHER NEEDS AT THIS TIME.
--- NOTE | 2017-08-30 19:00 | NUR ---
RECEIVED REPORT FROM RN. PATIENT IS RESTING COMFORTABLY IN BED, BREATHING IS EVEN AND UNLABORED. FLACC SCORE OF 0. APPEARS TO BE ASLEEP. CALL LIGHT WITHIN REACH.
--- NOTE | 2017-08-30 20:50 | NUR ---
PATIENT REPOSITIONED FOR COMFORT. NOW RESTING IN BED. AFTER MEDICATION ADMINISTRATION, PATIENT APPEARS SHORT OF BREATH AND STATES "IT IS HARD FOR ME TO HAVE MY HEAD UP FOR MEDICATIONS." PRN MORPHINE GIVEN FOR SHORTNESS OF BREATH. PATIENT IS NOW RESTING COMFORTABLY IN BED. CALL LIGHT WITHIN REACH.
--- NOTE | 2017-08-30 21:44 | NUR ---
CHARGE NURSE ROUNDING NOTE: PT RESTING AT THIS TIME, WAS MEDICATED EARLIER, F/C PATENT, GETS TURNED EVERY 2H, O2 IN PLACE
--- NOTE | 2017-08-30 23:09 | NUR ---
PATIENT RESTING COMFORTABLY IN BED, BREATHING IS EVEN AND UNLABORED. FLACC SCORE OF 0. CALL LIGHT WITHIN REACH.
--- NOTE | 2017-08-31 00:30 | NUR ---
PATIENT REPOSITIONED FOR COMFORT. PATIENT DENIES FURTHER NEEDS, DENIES PAIN. BREATHING IS EVEN AND UNLABORED. CALL LIGHT WITHIN REACH.
--- NOTE | 2017-08-31 02:18 | NUR ---
PATIENT RESTING COMFORTABLY IN BED, BREATHING IS EVEN AND UNLABORED. FLACC SCORE OF 0. CALL LIGHT WITHIN REACH.
--- NOTE | 2017-08-31 04:13 | NUR ---
PATIENT REPOSITIONED FOR COMFORT. DENIES FURTHER NEEDS. CALL LIGHT WITHIN REACH.
--- NOTE | 2017-08-31 04:20 | NUR ---
PATIENT'S NIGHT WAS UNEVENTFUL. HE HAS BEEN RESTING THROUGHOUT SHIFT. VSS. PRN SL MORPHINE GIVEN X1 FOR SHORTNESS OF BREATH. URINE OUTPUT CONTINUES TO BE LOW WITH CALDERA IN PLACE. ALERT AND ORIENTED X4, CALLS APPROPRIATELY. HAS 2+ EDEMA LLE, 3+ EDEMA IN RLE. LUNGS ARE COARSE IN BASES AT TIMES, CLEARS WITH COUGH. REMAINS ON 1L O2 FOR COMFORT. BOWEL TONES ARE ACTIVE, WORSENING ASCITES NOTED. NO NEW INTEGUMENARY PROBLEMS NOTED. 2PA/FWW TO BEDSIDE COMODE. IV IS SALINE LOCKED. NO ACUTE CHANGES FROM BEGINNING OF SHIFT.
--- NOTE | 2017-08-31 06:30 | NUR ---
PATIENT REPOSITIONED FOR COMFORT. DENIES FURTHER NEEDS. CALL LIGHT WITHIN REACH.
--- NOTE | 2017-08-31 07:00 | NUR ---
HANDOFF REPORT RECEIVED FROM IMPLEMENTATION ARCHITECT RN. PT SLEEPING LEFT UNDISTURBED.
--- NOTE | 2017-08-31 09:18 | NUR ---
PT SITTING IN CHAIR, BURR MACHINE OPERATOR AT BEDSIDE FOR MORNING VITALS. PT DENIES PAIN, COMPLAINT OF FULLNESS IN ABD. ABD DISTENDED AND FIRM. PT ON 0.5L FOR COMFORT, LUNG SOUNDS DIMINISHED, UNABLE TO TAKE DEEP BREATHS DUE TO ASCITES. PT WITH CALDERA CATH, CONTINUES TO HAVE LOW OUTPUT. EDEMA TO BLE, PULSES PALPABLE. PT TOLERATING REGUALR DIET, SMALL MEALS. PT DENIES OTHER NEEDS AT THIS TIME.
--- NOTE | 2017-08-31 10:30 | NUR ---
PATIENT USED CALL LIGHT TO ASK FOR ASSISTEANCE IN RECLING CAHIR. PILLOW UNDER LEGS. CALL LIGHT IN REACH NO OTHER NEEDS.
--- NOTE | 2017-08-31 11:55 | NUR ---
FADUMO AND I TRANSFERED PATIENT FROM HIS BED TO HIS CHAIR FOR BREAKFAST.
--- NOTE | 2017-08-31 15:30 | NUR ---
PT RESTING IN CHAIR, REQUESTING TO GET BACK TO BED. PT LUNG SOUNDS CLEAR WITH DIMINISHED BASES. EDEMA UNCHANGED TO BLE. URINE OUTPUT CONTINUES TO BE LOW. BOWEL TONES ACTIVE. NO ACUTE CHANGES. NURSE AIDES AT BEDSIDE TO ASSIST PT BACK TO BED.
--- NOTE | 2017-08-31 16:01 | NUR ---
MD TO BEDSIDE TO EVALUATE PT. CONTINUE TO PLAN FOR PROCEDURE TOMORROW WITH DR. ARANA AND THEN DISCHARGE TO SNF FOR REHAB. FAMILY AT BEDSIDE PT DENIES OTHER NEEDS AT THIS TIME.
--- NOTE | 2017-08-31 16:05 | NUR ---
FADUMO AND I TRANSFERED PATIENT TO HIS BED. NOW HE IS VISTING HIS FAMILY.
--- NOTE | 2017-08-31 18:19 | NUR ---
PT SAT IN CHAIR FOR MAJORITY OF DAY. ASCITES CONTINUES TO WORSEN, ABD FIRM. PT ON 0.5L NC FOR COMFORT, DIMINISHED BREATH SOUNDS, UNABLE TO DEEP BREATH. PT WITH SMALL APPETITE, FEELS FULL QUICKLY. UP WITH 2 PERSON ASSIST WITH FWW. PT WITH EDEMA TO BLE, 2-3+, PULSES PALPABLE. CALDERA CATH IN PLACE, LOW OUTPUT, MD AWARE, ENCOURAGE ORAL INTAKE. Q2 TURNS IN BED, PT CALLS APPROPRIATELY FOR TURNING. NPO AT MIDNIGHT FOR DRAIN PLACEMENT TOMORROW.
--- NOTE | 2017-08-31 20:14 | NUR ---
HOB ELEVATED AFTER MEDS BEING GIVEN WITH PUDIN, MOIST, NON PRODUCTIVE COUGH PRESENT PRIOR TO MEDS. O2 0.5L IN PLACE. NO SOB. DRESSING RUP,R WRIST, COXCCYS, IN PLACE. EDEMATOUS SCROPTUM AND LEGS, HEEL PROTECTORS IN PLACE. ABD DISTENTED, , SCATTERED BRUISES AND SCABS ALL OVER BODY IN DIFFERENT STAGES OF HEALING, DRY INTACT. PT TURNED TO LEFT SIDE, PROCEDURE EXPLAINED, COOPERATIVE. BENADRYL 25MG PO GIVEN AT PTS REQUESTS FOR INSOMNIA
--- NOTE | 2017-09-01 03:02 | NUR ---
TURNED TO R SIDE, COOP, DRESSINGS ON RIGHT UPPER ARM, COCCYX INTACT. F/C PATENT. EDEMATOUS LEGS, HEEL PROTECTORS IN PLACE, O2 IN PLACE, NO C/O PAIN OR REQUESTS. HAS SLEPT MOST OF THIS SHIFT
--- NOTE | 2017-09-01 04:31 | NUR ---
TURNED TO BACK, COOPERATIVE, AWAKENS EASILY. O2 1L NC. NO C/O PAIN
--- NOTE | 2017-09-01 06:11 | NUR ---
Pt currenlty resting, no c/o pain, awakens easily. O2 in place for comfort. f/c patent, dark yellow, nando care done. Scrotum continues to be reddened and edematous, both feet very edematous, elevated in pillows, heel protectors in place. SL patent. Dressing to r upper arm, elbow and coccyx area. no bm this shift. Pt aspirations precautions, take meds in applesauce. Very cooperative. Turned q 2 hrs. Pt aware of possible shunt placement this am. Abd justyn,
--- NOTE | 2017-09-01 07:32 | NUR ---
BEDSIDE REPORT RECEIVED FROM GABRIEL TABOR AT 0730. PATIENT AWAKE LYING IN BED ON RIGHT SIDE. NPO FOR SURGERY TODAY. 0.5L O2 NC IN PLACE FOR COMFORT. CALDERA CATHETER DRAINING APPROPRIATELY. SCABS/BRUISING ON LE NOTED. ALLEVYN IN PLACE ON UPPER EXTREMITIES. NO NEEDS AT THIS TIME. WHITE BOARD UPDATED IN ROOM.
--- NOTE | 2017-09-01 08:10 | NUR ---
OUTSIDE PLANT TECHNICIAN IN ROOM HELPING PATIENT WITH AM CARES. CALDERA CATHETER ATTACHMENT READJUSTED. CALDERA DRAINING YELLOW URINE. LW IV FLUSHED. PT REPORTS SORENESS NEAR IV SITE. LIKELY D/T PLACEMENT OF IV. RLE 3+ PITTING EDEMA. 2+ PITTING EDEMA LLE. LEGS ELEVATED. DUE TO TURN PATIENT AT 0830.
--- NOTE | 2017-09-01 08:51 | NUR ---
REPOSITIONED PATIENT HARDER TO LEFT SIDE. TWO PILLOWS BEHIND RIGHT SIDE. LOWER EXTREMITIES ELEVATED. PILLOW UNDER LEFT ELBOW.
--- NOTE | 2017-09-01 08:52 | NUR ---
THIS POSITION DESCRIPTION MANAGER AND RN RANDALL REPOSITIONED PATIENT ONTO LEFT SIDE. CALL LIGHT WITHIN REACH. NO OTHER NEEDS AT THIS TIME.
--- NOTE | 2017-09-01 09:37 | NUR ---
PATIENT RESTING IN BED WATCHING TV. PATIENT STATES HE HAS NO PAIN. CALL LIGHT WITHIN REACH. NO OTHER NEEDS AT THIS TIME.
--- NOTE | 2017-09-01 10:51 | NUR ---
pt up in halls with physical therapy. walked 8 ft out of room and back to chair.
--- NOTE | 2017-09-01 11:03 | NUR ---
PATIENT UP IN CHAIR WATCHING TV. PATIENT STATES THAT HE WAS WALKING WITH PT. LINEN CHANGED. CALL LIGHT WITHIN REACH. NO OTHER NEEDS AT THIS TIME.
--- NOTE | 2017-09-01 12:59 | NUR ---
THIS NURSE INSTRUCTOR AND RAGHAV DEVI ASSISTED PATIENT TO THE RESTROOM. 2 PERSON WITH FWW. WE ALSO ASSISTED PATIENT FROM THE RESTROOM TO THE BED. PATIENT IS NOW RESTING IN BED WATCHING TV. FRESH ICE WATER. CALL LIGHT WITHIN REACH. NO OTHER NEEDS AT THIS TIME.
--- NOTE | 2017-09-01 13:32 | NUR ---
pt sitting up in chair after physical therapy this morning. no needs at this time.
--- NOTE | 2017-09-01 13:48 | NUR ---
THIS PERSONAL CAREGIVER AND LEANDER VAZQUEZ ASSISTED PATIENT ONTO THE BEDPAN. THEN THIS PERSONAL CAREGIVER AND LEANDER PEREIRA ASSISTED PATIENT OFF THE BED [place]. REPOSITIONED ONTO HIS RIGHT SIDE. PATIENT IS NOW SITTING UP IN BED VISITING WITH A FAMILY MEMBER. CALL LIGHT WITHIN REACH. NO OTHER NEEDS AT THIS TIME.
--- NOTE | 2017-09-01 14:37 | NUR ---
PT SEEMED TO BE BOTHERED TODAY BY A NAGGING COUGH. MENTIONED THAT HE SLEPT WELL LAST NIGHT. TALKED ABOUT HOW MUCH HE ENJOYS HIS 'S COOKING-HER [place] ESPECIALLY. PT MENTIONED THAT HIS CORPORATE CONCIERGE HAD BEEN IN TO VISIT THIS WEEKEND. PT SEEMED TO REALLY APPRECIATE IT. PT SPOKE OFTEN ABOUT HOW GOOD THE CARE IS HE HAS RECEIVED AT [facility]. PRAYED WITH PT, WILL CONTINUE TO FOLLOW HAS RECEIVED WHILE HERE AT
--- NOTE | 2017-09-01 16:30 | NUR ---
PATIENT RESTING IN BED VISITING WITH . PATIENT STATES HE HAS NO PAIN, JUST FEELS BLOATED. FRESH ICE WATER. CALL LIGHT WITHIN REACH. NO OTHER NEEDS AT THIS TIME.
--- NOTE | 2017-09-01 18:18 | NUR ---
PATIENT HAD A GOOD DAY. SURGERY POSTPONED UNTIL TOMORROW SHUNT WON'T BE DELIVERED UNTIL TONIGHT. NPO AT MIDNIGHT. SALINE LOCKED IN LFA. FRAGILE SKIN. SCABS/BLISTERS GENERALIZED. ALLEVYN TO COVER WOUNDS. LOWER EXTREMITY AND SCROTAL EDEMA. RIGHT LE 3+. LEFT LE 2+. ASCITES. CALDERA CATHETER. 2PA FWW. WORKING WITH PT/OT. ANCEF WALLPAPER REMOVER STEAM TO OR. 1L 02 VIA NM FOR COMFORT. WILL GO TO [place] AT DISCHARGE FOR REHAB AND EVENTUALLY HOSPICE. TURN Q2 WHEN IN BED.
--- NOTE | 2017-09-01 18:35 | NUR ---
PATIENT RESTING IN BED WATCHING TV WITH BY BEDSIDE. PATIENT AND ARE WAITING FOR DINNER. CALL LIGHT WITHIN REACH. NO OTHER NEEDS AT THIS TIME.
--- NOTE | 2017-09-01 19:00 | NUR ---
RECIEVED REPORT FROM DAY SHIFT RN. PT IN BED WITH HOB ELEVATED. PILLOW UNDER LE. SL IN LEFT WRIST. PT COMPLAINING OF CONSTANT COUGH. CALL LIGHT WITHIN REACH. PAIN IN LEFT HEEL. FEET ELEVATED OFF BED. CALL LGITH WITHIN REACH.
--- NOTE | 2017-09-01 21:00 | NUR ---
PT REPORTED CONSTANT WET COUGH. UNABLE TO CLEAR SECRETIONS. ELEVATED HOB. PROVIDED SUCTIONING. GAVE 5MG MORPHINE AND BENADRYL.INTERVENTIONS UNSUCCESSFUL CALLED DR SHINE. NEW ORDERS RECIEVED.
--- NOTE | 2017-09-01 22:37 | NUR ---
PT APPEARS TO BE SLEEPING RR WNL. 1L O2 IN PLACE. CALL LGIHT WITHIN REACH. PT VISABLE FROM NURSING STATION.
--- NOTE | 2017-09-01 23:36 | NUR ---
REPOSITION SUPINE. EMPTIED CALDERA. [address] SHINE AWARE OF DECREASED URINE OUTPUT. NO NEW ORDERS RECIEVED. PT WOKE UP COMPLAINING OF COUGH. TESSALON PERLES AND ROBITUSSIN GIVEN. PT IN BED WITH HOB ELEVATED. FEET ELEVATED. HEEL PRTECTORS IN PLACE. CALL LIGHT WITHIN REACH.
--- NOTE | 2017-09-02 01:21 | NUR ---
PT APPEARS TO BE SLEEPING. RR WNL. CALL LIGHT WITHIN REACH. VISABLE FROM NURSING STATION.
--- NOTE | 2017-09-02 03:13 | NUR ---
REPOSITION PT ON RIGHT SIDE. PT COUGHING. REPORTS IT ISN'T BOTHERING HIM. STATES HE HAS NO NEEDS ST THIS TIME. CALL LIGHT WITHIN REACH. RR WNL. GURGGLING HEARD IN THROAT FROM SECRETIONS. PT REFUSED SUCTIONING.
--- NOTE | 2017-09-02 05:27 | NUR ---
NPO @ MIDNIGHT TONIGHT. GIRGGLING COUGH. UNABLE TO CLEAR SECRETIONS. SCROTAL EDEMA. LOW URINE OUPUT. DR SHINE AWARE. CALDERA IS IN [place]. SHUNT PLANNEDTO BE PLACED TODAY BY [place].PITTING EDEMA BILAT LE. ACITES. ABDOMENT DISTENED AND FIRM. HOB ELEVATED FOR COMFORT. SUCTIONING PRN. MORPHINE FOR COMFORT AND PAIN. MEDS IN APPLE SAUCE. MULTIPLE SKIN TEARS. TURN Q2H. PLAN TO DC TO [place] THEN HOME HOSPICE. LIVES AT HOME WITH . 1PA WITH FWW.
--- NOTE | 2017-09-02 06:54 | NUR ---
POSITION CHANGE TO LEFT SIDE. CALL LIGHT WITHIN REACH. PT REPORTS NO OTHER NEEDS.
--- NOTE | 2017-09-02 07:33 | NUR ---
BEDSIDE SHIFT REPORT RECEIVED FROM [place] TABOR. WHITE BOARD UPDATED. PATIENT AWAKENED TO VOICE. PATIENT ON 1L O2 NC FOR COMFORT. PLAN TO HAVE SURGERY LATER TODAY IF SURGICAL EQUIPMENT ARRIVES. HAS BEEN NPO AFTER MIDNIGHT.
--- NOTE | 2017-09-02 09:30 | NUR ---
lifted patient up in bed for comfort with 2PA. changed gown and right arm foam dressings. not changed since 08/28. picture consent and pictures placed on chart.
--- NOTE | 2017-09-02 09:35 | NUR ---
PATIENT RESTING IN BED. PAIENT WOULD LIKE TO GET UP INTO CHAIR WHEN PT COMES IN THIS AM. VISHNU AND CATH CARE DONE BY THIS SOCK BOARDER. HANDS AND FACE WASHED. PATIENT WOULD LIKE TO BRUSH HIS TEETH ONCE HE IS UP IN THE CHAIR. CALL BUTTON IN REACH. PATIENT STATES HE'S COMFORTABLE. NO OTHER NEEDS AT THIS TIME.
--- NOTE | 2017-09-02 11:03 | NUR ---
PT SITTING ON EDGE OF BED AFTER PHYSICAL THERAPY. 500ML LR BOLUS INFUSING NOW. WILL TURN RATE TO 75ML/HR WHEN BOLUS FINISHES. EXPECT SURGERY SOON. GETTING PATIENT PREPARED FOR SURGERY.
--- NOTE | 2017-09-02 11:29 | NUR ---
pt off unit to procedure at 1130.
--- NOTE | 2017-09-02 11:49 | NUR ---
DID A WIPE DOWN FOR PT BEFORE HE WENT TO SURGERY. HELPED PHYSICAL THERAPY GET PT UP, CHANGED HIS LINEN WHILE HE WALKED WITH PT, PATIENT IS IN SURGERY NOW.
--- NOTE | 2017-09-02 13:23 | NUR ---
SURGERY RN ARRIVED TO TAKE PT. HAD QUICK PRAYER, HE THANKED ME, WILL CHECK BACK WITH PT
--- NOTE | 2017-09-02 13:50 | NUR ---
09/02/17 1350 Merle Calix 1342 PT ARRIVED IN PACU SLEEPY WITH NO C/O'S.
--- NOTE | 2017-09-02 14:15 | NUR ---
pt back to room at 1415. room air. equipment delivered to room with patient. no pain. pt awake and alert. abdominal tubing looks intact.
--- NOTE | 2017-09-02 14:52 | NUR ---
GAVE PT A PRAYER QUILT AFTER RETURNING FROM HIS PROCEDURE. SEEMED VERY PLEASED.
--- NOTE | 2017-09-02 15:42 | NUR ---
PT STILL REPORTS NO PAIN. JUST LEFT FROM VISITING. NO NEEDS AT THIS TIME. BP STABLE. VSS.
--- NOTE | 2017-09-02 16:40 | NUR ---
TALKED WITH PT AND ABOUT WHERE HE IS FOR SURE GOING TO GO TO [facility] TOMORROW. TALKED WITH [facility] ABOUT PT COMING WITH HIS TUBING AND THEY ARE WILLING TO TAKE HIM. DR ARANA IS SAYING HE WILL GO TEACH THE NURSES HOW TO USE THIS CATHETER.
[2017-09-02] MEDS ORDERED: DIPHENHYDRAMINE25 M1 PO (17:02)
[2017-09-02] MEDS ORDERED: IPRATROPIU0.2 MG/1 M INH (17:02)
[2017-09-02] MEDS ORDERED: HYDRALAZINE HCL10 MG PO (17:03)
[2017-09-02] MEDS ORDERED: MAPAP500 M1 PO (17:05)
[2017-09-02] MEDS ORDERED: BENZONATATE100 MG PO (17:06)
[2017-09-02] MEDS ORDERED: MORPHINE S20 MG/5 ML PO (17:07)
[2017-09-02] MEDS ORDERED: GUAIFENESIN-CODE5 ML PO (17:07)
--- NOTE | 2017-09-02 17:19 | NUR ---
PATIENT SITTING STRAIGHT UP IN BED. FAMILY IN ROOM TO VISIT. FRESH ICE WATER GIVEN CALL BUTTON IN REACH. NO OTHER NEEDS AT THIS TIME.
--- NOTE | 2017-09-02 17:48 | NUR ---
PATIENT HAD SURGERY TODAY. TUBING TAPED TO RLQ. DR ARANA TO BE HERE TOMORROW TO EDUCATE NURSES HOW TO DRAIN FLUID OFF PATIENT. EQUIPMENT BELOW WHITE BOARD IN ROOM. ROOM AIR. NO PAIN. WORKING WITH PHYSICAL THERAPY. 2PA WITH FWW FOR TRANSFERS. NO BM SINCE 08/29. PATIENT TAKES MEDS WITH APPLESAUCE. PLAN FOR [place] AT DISCHARGE FOR REHAB.
--- NOTE | 2017-09-02 20:45 | NUR ---
PT SITTING UP IN BED, WATCHING BASKETBALL ON TV. ALERT AND ORIENTED X4. PLEASENT DEMEANOR. DRAINED 2L OFF OUT OF ABD CATHETER, FLUID IS TRANSPARENT AND CLEAR IN COLOR. CHANGED GOWN AND BEDDING, PT TOLERATED WELL. CHANGED DRESSING TO INSERTION SITE OF TUBE IN RIGHT SIDE. PT HAS NO FURTHER NEEDS. CALL LIGHT IN REACH.
--- NOTE | 2017-09-02 21:58 | NUR ---
GAVE ROBITUSSIN FOR COUGH. PT HAS NO FURTHER NEEDS. CALL LIGHT IN REACH. LIGHTS AND TV OFF.
--- NOTE | 2017-09-02 22:28 | NUR ---
ASSISTED RN MAHAMED CHANGE PATIENT'S DRESSING, BED LINEN AND GOWN.
--- NOTE | 2017-09-02 22:30 | NUR ---
CHANGED LINENS AND GOWN. PLACED WHITE CHUX UNDER PT AND THEN A BLUE CHUX UNDER THE DRAIN SITE. ALSO CHANGED DRESSING TO DRAIN INSERTION SITE. PT TOLERATED WELL, DENIES PAIN. DENIES NAUSEA. VERY PLEASENT.
--- NOTE | 2017-09-02 23:17 | NUR ---
PT APPEARS TO BE SLEEPING. RR WNL AND UNLABORED. LIGHTS AND TV OFF IN ROOM.
--- NOTE | 2017-09-03 00:54 | NUR ---
pt appears asleep. lights and tv off in room. rr wnl and unlabored.
--- NOTE | 2017-09-03 06:12 | NUR ---
pt resting quielty. no distress. lights and tv off in room. rr wnl and unlabored.
--- NOTE | 2017-09-03 07:05 | NUR ---
BEDSIDE HANDOFF REPORT RECEIVED FROM FLOOR CASHIER RN. PT RESTING IN BED. RUQ DRAIN LEAKING AROUND INSERTION SITE, CHUX PAD CHANGED. PT DENIES OTHER NEEDS AT THIS TIME.
--- NOTE | 2017-09-03 08:50 | NUR ---
PT RESTING IN BED. PT DENIES PAIN AT THIS TIME. PT ON ROOM AIR, FEELS SHORT OF BREATH, AT BASELINE, LUNG SOUNDS CLEAR. PT TOLERATING REGULAR DEIT, BOWEL TONES ACTIVE, DENIES NAUSEA. PT WITH DRAIN TO R SIDE OF ABD, DRAINING FROM INSERTION SITE, DRESSING SATURATED, DRESSING CHANGED. PT WITH EDEMA TO BLE, 3+, LEGS ELEVATED ON PILLOWS. PT SALINE LOCKED. CALDERA CATH IN PLACE, DRAINING FREELY. PT DENIES OTHER NEEDS AT THIS TIME. DISCUSSED PLAN OF CARE, POSSIBLE DISCHARGE TO [facility] TODAY.
--- NOTE | 2017-09-03 09:17 | NUR ---
VS AND I&O'S TAKEN AND DOCUMENTED. PT STATES NO OTHER NEEDS AT THIS TIME. CALL LIGHT IS IN REACH.
--- NOTE | 2017-09-03 10:15 | NUR ---
PT WITH DRAINAGE FROM ABD DRAIN INSERTION SITE, DRESSING CHANGED. PT ROLLED TO LEFT SIDE. PT DENIES OTHER NEEDS AT THIS TIME.
--- NOTE | 2017-09-03 13:30 | NUR ---
FAXED ORDERS AND INSTRUCTIONS TO [facility]. AWAITING WORD.
--- NOTE | 2017-09-03 15:30 | NUR ---
PT TO [facility] TALKED WITH AND SHE STATES THAT WHEN HE GETS STRONGER SHE [facility]
--- NOTE | 2017-09-04 09:26 | OR ---
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 PROCEDURE: Placement of PleurX catheter (abdominal placement) for ascites drainage. ANESTHESIA: Local with monitored anesthesia care (Natasha Chong CRNA) including Marcaine 0.25% with epinephrine. INDICATION: This 89-year-old white man was admitted by Dr. Crane and subsequently cared for by Dr. Shine with market abdominal ascites. 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 It is uncertain if these are metastatic or primary to the liver. He has no underlying liver disease otherwise. Indeed, he has undergone cholecystectomy by me a few years ago, which showed a normal liver and so on. Comfort care approach has been deemed most appropriate in his circumstance. He underwent drainage of ascites by typical paracentesis by me a few days ago and draining fluid as he was markedly symptomatic with shortness of breath and so forth. The options of management have been reviewed including recurrent paracentesis procedures, placement of a [place] shunt and placement of a catheter, which can be drained episodically for comfort care measures. The latter was deemed most appropriate and likely successful under the circumstances. The risks of bleeding, infection, catheter malposition, and other problems with its placement or usage were reviewed in detail with family and others and they wish to proceed. FINDINGS: Clear ascites was noted from the abdominal cavity, 2 L was extracted without problem. The catheter was placed in a tunnel position as appropriate with the entry point inferior to the exit site of the catheter several centimeters. 2080 mL were drained out without problem, more could be drained. However, I did not do any more than that, as Electronically Signed By: ERICKA ARANA MD 09/04/17 0926 PATIENT NAME: VISHNU KAUFMAN OPERATIVE REPORT DATE OF : [birth year] REPORT #: [id number] PHYSICIAN: ERICKA ARANA MD PCP: MARGARITO MERAZ DO REPORT IS CONFIDENTIAL AND NOT TO BE RELEASED WITHOUT AUTHORIZATION [facility] [address], [place] [address] Signed the abdomen that appeared more soft at conclusion of the 2 L drainage and further drainage can be undertaken as necessary. DESCRIPTION OF PROCEDURE: The patient was brought to the operating room and placed in the supine position. He was given preoperative antibiotic Ancef. Sequential compression device stockings were not used at this point. The abdomen was prepared with chlorhexidine solution and draped sterilely. In the right lower to mid abdomen, a 0.25% Marcaine was injected locally and using a 20 mL syringe and a 22-gauge needle, the abdominal cavity was interrogated allowing for drainage of clear ascites fluid. This was deemed an appropriate site for placement of the catheter. Additional local anesthetic was injected there and then cephalad 10-12 cm, similar injection was undertaken. Transverse incisions were made between the two sites. Using a needle with angio catheter with contained kit of the PleurX device, the peritoneal cavity was once again entered in the lower aspect and egress of clear ascites fluid was noted. A flexible J-wire was passed down the needle. The needle was removed. Using the tunneling catheter, the catheter was drawn through the incision cephalad such that the cuff would rest 2-3 cm from the incision site itself. Using a dilator and subsequently dilator and peel-away sheath introducer, the abdominal cavity was entered inferiorly through this lower incision showing rapid egress of ascites fluid. The catheter, which had multiple fenestrations within it was passed into the peel-away sheath and the peel-away sheath removed and the catheter placed into the peritoneal cavity. Aspiration on the catheter showed it to be high functioning. The one way valve on the device was secured to the converter device enclosed in a kit and approximately 500 mL of ascites withdrawn through the catheter showing its good function. The entry site in the lower abdomen was secured with interrupted 2-0 Vicryl, so as to avoid excessive ascites leakage and then the skin closed with interrupted 3-0 Vicryl. Additional drainage of the catheter of a total of 2080 mL was undertaken making the abdomen far or more compliant and soft. It is noted that 5 L of fluid was taken off just a few days ago. The catheter in the superior aspect was secured with a nylon suture and closed the dressing in OpSite type dressing. The lower site was closed more fully with Steri-Strips and a small OpSite. A total of greater than 2000 mL were removed. The patient was ultimately taken to recovery room in good condition having suffered no complications. Sponge, needle, and instrument counts reported as correct x3. Ericka Arana MD Electronically Signed By: ERICKA ARANA MD 09/04/17 0926 PATIENT NAME: VISHNU KAUFMAN OPERATIVE REPORT DATE OF : [birth year] REPORT #: [id number] PHYSICIAN: ERICKA ARANA MD PCP: MARGARITO MERAZ DO REPORT IS CONFIDENTIAL AND NOT TO BE RELEASED WITHOUT AUTHORIZATION [facility] [address] [address] [place] [address] Signed /[facility] /[id number] cc: MD Margarito Barrios DO Copies: KJ SHINE MD, FRANK E DO ~ Electronically Signed By: ERICKA ARANA MD 09/04/17 0926 PATIENT NAME: VISHNU KAUFMAN OPERATIVE REPORT DATE OF : [birth year] REPORT #: [id number] PHYSICIAN: ERICKA ARANA MD PCP: MARGARITO MERAZ DO REPORT IS CONFIDENTIAL AND NOT TO BE RELEASED WITHOUT AUTHORIZATION
--- NOTE | 2017-09-04 09:46 | NUR ---
PT RESTING COMFORTABLY, WAITING FOR TRANSFER TO [facility]. SHOOK MY HAND, THANKED ME AGAIN FOR PRAYER QUILT, AND ASSURED ME THAT HE WOULD SAVE ME A PLACE IN [facility] IF HE GOT THERE BEFORE ME. GAVE ME THE PRIVILEDGE TO PRAY FOR HIM, AND HE MENTIONS OFTEN HOW PLEASED HE HAS BEEN WITH THE CARE HE HAS RECEIVED WHILE HERE AT [facility].
== END 2017-09-03 15:29 | disposition home or self-care (01) | DRG 436 ==
LOC: ED 10:12 → MS 12:22
PROVIDERS: ADMIT Internal Medicine
PROC: 0W9G3ZZ Drainage of Peritoneal Cavity, Percutaneous Approach (ICD-10-PCS; principal; 2017-08-28)
PROC: 0W9G30Z Drainage of Peritoneal Cavity with Drainage Device, Percutaneous Approach (ICD-10-PCS; 2017-09-02)
DX: C78.7 Secondary malignant neoplasm of liver and intrahepatic bile duct (principal); R18.0 Malignant ascites; J90 Pleural effusion, not elsewhere classified; I87.1 Compression of vein; E87.5 Hyperkalemia; E11.649 Type 2 diabetes mellitus with hypoglycemia without coma; Z66 Do not resuscitate; Z51.5 Encounter for palliative care; I11.0 Hypertensive heart disease with heart failure; I50.9 Heart failure, unspecified; Z85.46 Personal history of malignant neoplasm of prostate; Z87.891 Personal history of nicotine dependence; Z79.01 Long term (current) use of anticoagulants; Z86.718 Personal history of other venous thrombosis and embolism; Z79.4 Long term (current) use of insulin
CPT/HCPCS: 00800; 36415; 49082; 71045; 80048; 80053; 80069; 81001; 83735; 83880; 84484; 85025; 85610; 93005; 93010; 94760; 94762; 97110; 97116; 97163; 97165; 97530; 97535; J0330; J0690; J2250; J2704; J3010; J3430; J3475; J7120